=== PATIENT | female | born 1995 | race Caucasian/White ===

== ENCOUNTER → 2022-01-31 | Day surgery (SDC) | payer OTHER ==
[~2022-01-31] MED LIST: HYDROCODON-ACE1 EAC2 PO
[2022-01-31 11:59] LABS: BUN/CREATININE RATIO 12 (0-10)
[2022-01-31 12:46] LABS: HEMOGLOBIN 11.6 gm/dl (12.3-15.3); RED BLOOD COUNT 4.01 M/UL (4.00-5.10)
== END | disposition home or self-care (01) ==
LOC: OR 10:52
PROVIDERS: Orthopaedic Surgery
DX: S52.571A Other intraarticular fracture of lower end of right radius, initial encounter for closed fracture (principal); S64.21XA Injury of radial nerve at wrist and hand level of right arm, initial encounter; W23.1XXA Caught, crushed, jammed, or pinched between stationary objects, initial encounter
CPT/HCPCS: 36415; 73110; 76000; 80048; 84703; 85027; C1713; J0690; J1100; J2001; J2250; J2405; J2704; J2795; J3010